=== PATIENT | female | born 1945 | race Caucasian/White ===

== ENCOUNTER 2017-04-28 07:11 | Outpatient (CLI) | payer OTHER | END 2017-04-28 07:18 | disposition home or self-care (01) | LOC: NUCLEAR 07:11 | DX: I20.8 Other forms of angina pectoris (principal); I52 Other heart disorders in diseases classified elsewhere | CPT/HCPCS: 78452; 93017; A9500; J0153 ==

== ENCOUNTER 2018-05-02 08:52 | Outpatient (CLI) | payer OTHER | END 2018-05-02 11:30 | disposition home or self-care (01) | LOC: MAMO-SONO 08:52 | DX: Z12.31 Encounter for screening mammogram for malignant neoplasm of breast (principal); Z87.898 Personal history of other specified conditions; N64.89 Other specified disorders of breast ==

== ENCOUNTER 2018-08-15 08:06 | Outpatient (CLI) | payer OTHER | END 2018-08-15 08:57 | disposition home or self-care (01) | LOC: NUCLEAR 08:06 | DX: I87.2 Venous insufficiency (chronic) (peripheral) (principal); G62.9 Polyneuropathy, unspecified; I70.213 Atherosclerosis of native arteries of extremities with intermittent claudication, bilateral legs; I73.9 Peripheral vascular disease, unspecified ==

== ENCOUNTER → 2018-08-22 | Outpatient (CLI) | payer OTHER | END | disposition home or self-care (01) | LOC: NUCLEAR 08:50 | DX: I73.9 Peripheral vascular disease, unspecified (principal); G62.9 Polyneuropathy, unspecified; I70.213 Atherosclerosis of native arteries of extremities with intermittent claudication, bilateral legs ==

== ENCOUNTER → 2018-08-22 | Outpatient (CLI) | payer OTHER | END | disposition home or self-care (01) | LOC: SONOGRAMA 09:45 | DX: D50.0 Iron deficiency anemia secondary to blood loss (chronic) (principal); G52.8 Disorders of other specified cranial nerves; I10 Essential (primary) hypertension; I70.213 Atherosclerosis of native arteries of extremities with intermittent claudication, bilateral legs; I73.89 Other specified peripheral vascular diseases; N93.8 Other specified abnormal uterine and vaginal bleeding; G62.89 Other specified polyneuropathies; E06.3 Autoimmune thyroiditis; E03.8 Other specified hypothyroidism; E04.2 Nontoxic multinodular goiter ==

== ENCOUNTER → 2018-09-06 | Outpatient (CLI) | payer OTHER | END | disposition home or self-care (01) | LOC: SONOGRAMA 09:39 | DX: E04.2 Nontoxic multinodular goiter (principal); D51.3 Other dietary vitamin B12 deficiency anemia; D50.0 Iron deficiency anemia secondary to blood loss (chronic); G62.89 Other specified polyneuropathies; I10 Essential (primary) hypertension; I70.213 Atherosclerosis of native arteries of extremities with intermittent claudication, bilateral legs; I73.89 Other specified peripheral vascular diseases; N93.8 Other specified abnormal uterine and vaginal bleeding; Z12.31 Encounter for screening mammogram for malignant neoplasm of breast; N63.10 Unspecified lump in the right breast, unspecified quadrant; N63.20 Unspecified lump in the left breast, unspecified quadrant ==

== ENCOUNTER 2020-04-15 11:17 | Emergency (ER) | payer OTHER ==
[~2020-04-15] VITALS: Ht 144.8 cm; Wt 68.0 kg
[2020-04-15] MEDS ORDERED: HYDROCHLOROTHIA25 MG (11:27)
[2020-04-15] MEDS ORDERED: TENORMIN100 M1 (11:27)
[2020-04-15] MEDS ORDERED: SKELAXIN800 MG PO (16:23)
[2020-04-15] MEDS ORDERED: ULTRAM50 MG PO (16:23)
[2020-04-15] MEDS ORDERED: VOLTAREN100 GM TOP (16:23)
== END 2020-04-15 16:36 | disposition home or self-care (01) ==
LOC: ER 11:17
DX: I87.2 Venous insufficiency (chronic) (peripheral) (principal); M79.604 Pain in right leg; M25.561 Pain in right knee

== ENCOUNTER 2020-06-02 08:18 | Outpatient (CLI) | payer OTHER ==
[~2020-06-02 08:18] MED LIST: HYDROCHLOROTHIA25 MG; SKELAXIN800 MG PO; TENORMIN100 M1; ULTRAM50 MG PO; VOLTAREN100 GM TOP
== END 2020-06-02 08:19 | disposition home or self-care (01) ==
LOC: LAB 08:18
PROVIDERS: ATTEND Orthopaedic Surgery
DX: S82.874D Nondisplaced pilon fracture of right tibia, subsequent encounter for closed fracture with routine healing (principal); M85.88 Other specified disorders of bone density and structure, other site; M81.8 Other osteoporosis without current pathological fracture; E56.1 Deficiency of vitamin K; E83.42 Hypomagnesemia

== ENCOUNTER → 2020-12-19 | Emergency (ER) | payer OTHER ==
[~2020-12-19] VITALS: Ht 142.2 cm; Wt 66.7 kg
[~2020-12-19] MED LIST changes: +CILOSTAZOL50 MG PO; +DECADRON4 MG; +ECOTRIN81 MG PO; +FOSAMAX70 MG PO; +GABAPENTIN600 MG PO; +HYDROCHLOROTHIA25 MG PO; +ISOSORBIDE DINI30 MG PO; +LAXACIN TABLET1 EACH PO; +LIPITOR20 MG PO; +NOXIFOL-D32500 UNIT PO; +PEPCID AC20 MG; +TENORMIN100 M1 PO; +ZESTRIL20 MG PO
== END | disposition designated cancer center or children's hospital (05) ==
LOC: ER 09:54
DX: D49.6 Neoplasm of unspecified behavior of brain (principal); Z20.822 Contact with and (suspected) exposure to COVID-19
CPT/HCPCS: 70545

== ENCOUNTER 2020-12-26 11:37 | Emergency (ER) | payer OTHER ==
[~2020-12-26] VITALS: Ht 121.9 cm; Wt 64.4 kg
[~2020-12-26 11:37] MED LIST changes: -CILOSTAZOL50 MG PO; -DECADRON4 MG; -ECOTRIN81 MG PO; -FOSAMAX70 MG PO; -HYDROCHLOROTHIA25 MG PO; -ISOSORBIDE DINI30 MG PO; -LAXACIN TABLET1 EACH PO; -LIPITOR20 MG PO; -NOXIFOL-D32500 UNIT PO; -PEPCID AC20 MG; -ZESTRIL20 MG PO
[2020-12-26] MEDS ORDERED: CILOSTAZOL50 MG PO (12:51)
[2020-12-26] MEDS ORDERED: NOXIFOL-D32500 UNIT PO (12:51)
[2020-12-26] MEDS ORDERED: ZESTRIL20 MG PO (12:52)
[2020-12-26] MEDS ORDERED: DECADRON4 MG (12:52)
[2020-12-26] MEDS ORDERED: HYDROCHLOROTHIA25 MG PO (12:53)
[2020-12-26] MEDS ORDERED: PEPCID AC20 MG (12:53)
[2020-12-26] MEDS ORDERED: FOSAMAX70 MG PO (12:53)
[2020-12-26] MEDS ORDERED: ISOSORBIDE DINI30 MG PO (12:54)
[2020-12-26] MEDS ORDERED: ECOTRIN81 MG PO (12:54)
[2020-12-26] MEDS ORDERED: LAXACIN TABLET1 EACH PO (12:55)
[2020-12-26] MEDS ORDERED: LIPITOR20 MG PO (12:56)
== END 2020-12-27 20:35 | disposition home or self-care (01) ==
LOC: ER 11:37
DX: R55 Syncope and collapse (principal); R53.83 Other fatigue; D49.6 Neoplasm of unspecified behavior of brain; Z11.52 Encounter for screening for COVID-19